=== PATIENT | male | born 1940 | race Caucasian/White ===

== ENCOUNTER → 2017-05-20 | Outpatient (CLI) | payer MEDICARE ==
[2017-05-20 08:52] LABS: ALBUMIN 3.3 g/dL (3.4-5.0); ALBUMIN/GLOBULIN RATIO 0.7 (1.0-1.7); CALCIUM 8.5 mg/dL (8.5-10.1); CREATININE 1.3 mg/dL (0.7-1.3); POTASSIUM 4.4 mmol/L (3.5-5.1); TOTAL BILIRUBIN 0.5 mg/dL (0.2-1.0); TOTAL PROTEIN 7.9 g/dL (6.4-8.2)
== END | disposition home or self-care (01) ==
LOC: LAB 03-08 08:34
PROVIDERS: ATTEND Nurse Practitioner
DX: E78.5 Hyperlipidemia, unspecified (principal); J84.112 Idiopathic pulmonary fibrosis; Z79.899 Other long term (current) drug therapy
CPT/HCPCS: 36415; 80053; 80061

== ENCOUNTER → 2017-06-28 | Outpatient (CLI) | payer MEDICARE ==
[2017-06-29 09:30] LABS: ALBUMIN 3.6 g/dL (3.4-5.0); ALBUMIN/GLOBULIN RATIO 0.8 (1.0-1.7); CALCIUM 8.8 mg/dL (8.5-10.1); CREATININE 1.2 mg/dL (0.7-1.3); GFR 59.2; POTASSIUM 4.3 mmol/L (3.5-5.1); TOTAL BILIRUBIN 0.5 mg/dL (0.2-1.0); TOTAL PROTEIN 8.1 g/dL (6.4-8.2)
[2017-06-29 09:31] LABS: MAGNESIUM 1.9 mg/dL (1.8-2.4)
== END | disposition home or self-care (01) ==
LOC: LAB 08:13
PROVIDERS: ATTEND Nurse Practitioner
DX: E78.5 Hyperlipidemia, unspecified (principal); R52 Pain, unspecified
CPT/HCPCS: 36415; 80053; 80061; 82306; 83735

== ENCOUNTER → 2018-04-06 | Outpatient (CLI) | payer MEDICARE ==
[2018-04-06 09:21] LABS: ALBUMIN 3.4 g/dL (3.4-5.0); ALBUMIN/GLOBULIN RATIO 0.9 (1.0-1.7); CALCIUM 9.1 mg/dL (8.5-10.1); CREATININE 1.3 mg/dL (0.7-1.3); GFR 53.8; POTASSIUM 3.8 mmol/L (3.5-5.1); TOTAL BILIRUBIN 0.8 mg/dL (0.2-1.0); TOTAL PROTEIN 7.3 g/dL (6.4-8.2)
== END | disposition home or self-care (01) ==
LOC: LAB 08:12
PROVIDERS: ATTEND Nurse Practitioner
DX: E78.5 Hyperlipidemia, unspecified (principal)
CPT/HCPCS: 36415; 80053; 80061

== ENCOUNTER → 2018-07-20 | Outpatient (CLI) | payer MEDICARE ==
[2018-07-20 09:24] LABS: CALCIUM 8.6 mg/dL (8.5-10.1); CREATININE 1.4 mg/dL (0.7-1.3); GFR 49.4; POTASSIUM 3.9 mmol/L (3.5-5.1)
== END | disposition home or self-care (01) ==
LOC: LAB 08:49
PROVIDERS: ATTEND Nurse Practitioner
DX: R60.0 Localized edema (principal)
CPT/HCPCS: 36415; 80048

== ENCOUNTER → 2018-08-01 | Outpatient (CLI) | payer MEDICARE ==
[2018-08-01 14:50] LABS: CALCIUM 8.6 mg/dL (8.5-10.1); CREATININE 1.4 mg/dL (0.7-1.3); GFR 49.4
[2018-08-01 14:51] LABS: POTASSIUM 3.8 mmol/L (3.5-5.1)
[2018-08-02 13:21] LABS: FREE T4 1.05 ng/dL (0.76-1.46); THYROID STIM HORMONE (TSH) 3.29 uIU/mL (0.358-3.740)
== END | disposition home or self-care (01) ==
LOC: LAB 11:55
PROVIDERS: ATTEND Nurse Practitioner
DX: I50.810 Right heart failure, unspecified (principal)
CPT/HCPCS: 36415; 80048; 83880; 84439; 84443

== ENCOUNTER → 2018-09-29 | Outpatient (CLI) | payer MEDICARE ==
[2018-09-29 12:04] LABS: CALCIUM 8.5 mg/dL (8.5-10.1); CREATININE 1.4 mg/dL (0.7-1.3); GFR 49.4; POTASSIUM 3.1 mmol/L (3.5-5.1)
== END | disposition home or self-care (01) ==
LOC: LAB 11:18
PROVIDERS: ATTEND Nurse Practitioner
DX: I27.21 Secondary pulmonary arterial hypertension (principal)
CPT/HCPCS: 36415; 80048

== ENCOUNTER 2018-10-19 14:46 | Emergency (ER) | payer MEDICARE ==
[~2018-10-19] VITALS: Ht 182.9 cm; Wt 83.5 kg
[2018-10-19] MEDS ORDERED: IPRATRPIUM/ALBUTEROL 0.5/2.5MG 3 ML NEBU. ONE (14:47)
[2018-10-19] MEDS ORDERED: NALOXONE 0.4 MG/ML VIAL. ONE (14:52)
[2018-10-19] MEDS ORDERED: NALOXONE 0.4 MG/ML VIAL. IV ONE (15:00)
[2018-10-19] MEDS ORDERED: IPRATRPIUM/ALBUTEROL 0.5/2.5MG 3 ML NEBU. NEB ONE (15:00)
[2018-10-19 15:06] LABS: BASO # 0.1 x10^3/uL (0.0-0.2); BASO % 1 % (0-3); EOS # 0.2 x10^3/uL (0.0-0.7); EOS % 1 % (0-3); HEMATOCRIT 51.9 % (39.0-53.0); HEMOGLOBIN 16.5 g/dL (13.0-17.5); LYMPH # 2.5 x10^3/uL (1.0-4.8); LYMPH % 20 % (24-48); MEAN CORPUSCULAR HEMOGLOBIN 32 pg (25-35); MEAN CORPUSCULAR HGB CONC 32 g/dL (31-37); MEAN CORPUSCULAR VOLUME 102 fL (79-100); MONO # 1.2 x10^3/uL (0.0-1.1); MONO % 10 % (0-9); NEUT # 8.5 x10^3uL (1.8-7.7); NEUT % 68 % (31-73); PLATELET COUNT 124 x10^3/uL (140-400); RED BLOOD COUNT 5.11 x10^6/uL (4.30-5.70); RED CELL DISTRIBUTION WIDTH 15.9 % (11.5-14.5); WHITE BLOOD COUNT 12.5 x10^3/uL (4.0-11.0)
--- NOTE | 2018-10-19 15:09 | RAD ---
PORTABLE CHEST 1V History: Altered mental status today, hypoxia Comparison: None. Findings: AP view of the chest is submitted. There is perihilar opacity bilaterally, also interstitial opacity of the mid to inferior hemithoraces and to lesser degree of the upper lobes. There is no dependent pleural fluid or pneumothorax. Pericardial cardiac silhouette is somewhat enlarged. Impression: 1. There is interstitial opacity bilaterally likely component of interstitial fibrotic change although superimposed component of interstitial edema or infiltrate not excluded. Electronically signed by: Marlon Ledesma MD (10/19/2018 3:04 PM) [id number]
[2018-10-19 15:18] LABS: BGAS PH 7.25 (7.35-7.46)
--- NOTE | 2018-10-19 15:19 | RAD ---
CT of the head without contrast, 10/19/2018: HISTORY: Altered mental status There is moderate cerebral atrophy. The ventricles are mildly enlarged on a compensatory basis. There is no shift of the midline structures. 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 There is no evidence of acute intracranial hemorrhage or mass effect. IMPRESSION: 1. Chronic findings as described above. 2. No acute intracranial abnormality is detected. PQRS Compliance Statement: One or more of the following individualized dose reduction techniques were utilized for this examination: 1. Automated exposure control 2. Adjustment of the mA and/or kV according to patient size 3. Use of iterative reconstruction technique Electronically signed by: Suresh Ott MD (10/19/2018 3:15 PM) [facility]
[2018-10-19 15:33] LABS: ALBUMIN 3.2 g/dL (3.4-5.0); ALBUMIN/GLOBULIN RATIO 0.9 (1.0-1.7); CALCIUM 8.3 mg/dL (8.5-10.1); CREATININE 1.7 mg/dL (0.7-1.3); GFR 39.5; POTASSIUM 4.5 mmol/L (3.5-5.1); TOTAL BILIRUBIN 0.7 mg/dL (0.2-1.0); TOTAL PROTEIN 6.9 g/dL (6.4-8.2)
[2018-10-19 15:34] LABS: BILIRUBIN,URINE NEG (NEG); CLARITY,URINE HAZY; COLOR,URINE STRAW; GLUCOSE,URINE NEG (NEG); NITRITE,URINE NEG (NEG); UROBILINOGEN,URINE 0.2 mg/dL (0.2 mg/dL)
[2018-10-19 15:35] LABS: BACTERIA,URINE FEW /HPF (0-FEW); HYALINE CASTS, URINE OCC /HPF; SPERM,URINE PRESENT /HPF
--- NOTE | 2018-10-19 15:36 | PHYS DOC ---
Past History Additional Past Medical Histor: pulmonary disease Adult General Chief Complaint Chief Complaint: SHORTNESS OF BREATH HPI HPI Patient is a 77 year old male who presents with shortness of breath and altered mental status. Patient was found by a family approximately 5 minutes prior to EMS arrival with the patient having difficulty breathing and a decreased mental status. EMS arrived found that he was hypoxic and started bag valve respirations. Fingerstick sugar was greater than 100 for EMS. Patient took some unknown medicines that may or may not have been set out by his nurse. Patient is post be receiving palliative care for this chronic lung disease. History is limited from patient due to his altered mental status. History is also limited from family.[] Review of Systems Review of Systems Limited due to altered mental status All other systems were reviewed and found to be within normal limits, except as documented in this note. Current Medications Current Medications Current Medications Medications (Trade) Dose Ordered Sig/Billie Start Time Stop Time Status Last Admin Dose Admin Albuterol/ Ipratropium (Duoneb) 3 ml STK-MED ONCE 10/19/18 14:47 10/19/18 14:49 DC Naloxone HCl (Narcan) 0.4 mg STK-MED ONCE 10/19/18 14:52 10/19/18 14:54 DC Physical Exam Physical Exam Constitutional: Well developed, well nourished, minimally responsive, tolerating nasal airway. [] HENT: Normocephalic, atraumatic, bilateral external ears normal, oropharynx moist, no oral exudates, nose normal. [] Eyes: PERRLA, EOMI, conjunctiva normal, no discharge. [] Neck: Normal range of motion, no tenderness, supple, no stridor. [] Cardiovascular:Heart rate is tachycardiac with regular rhythm, no murmur [] Lungs & Thorax: Bilateral breath sounds coarse to auscultation[] Abdomen: Bowel sounds normal, soft, no tenderness, no masses, no pulsatile masses. [] Skin: Warm, dry, no erythema, no rash. [] Back: No tenderness, no CVA tenderness. [] Extremities: No tenderness, no cyanosis, no clubbing, ROM intact, 2-3+ pretibial edema. [] Neurologic: Decreased mental status, normal motor function, normal sensory function, no focal deficits noted. [] Psychologic: Unable to assess. [] Current Patient Data Vital Signs Vital Signs Date Time Temp Pulse Resp B/P (MAP) Pulse Ox O2 Delivery O2 Flow Rate FiO2 10/19/18 15:23 88 18 116/91 (99) 90 NonRebreather Mask 15.0 Lab Results Laboratory Tests Test 10/19/18 14:50 White Blood Count 12.5 x10^3/uL (4.0-11.0) H Red Blood Count 5.11 x10^6/uL (4.30-5.70) Hemoglobin 16.5 g/dL (13.0-17.5) Hematocrit 51.9 % (39.0-53.0) Mean Corpuscular Volume 102 fL (79-100) H Mean Corpuscular Hemoglobin 32 pg (25-35) Mean Corpuscular Hemoglobin Concent 32 g/dL (31-37) Red Cell Distribution Width 15.9 % (11.5-14.5) H Platelet Count 124 x10^3/uL (140-400) L Neutrophils (%) (Auto) 68 % (31-73) Lymphocytes (%) (Auto) 20 % (24-48) L Monocytes (%) (Auto) 10 % (0-9) H Eosinophils (%) (Auto) 1 % (0-3) Basophils (%) (Auto) 1 % (0-3) Neutrophils # (Auto) 8.5 x10^3uL (1.8-7.7) H Lymphocytes # (Auto) 2.5 x10^3/uL (1.0-4.8) Monocytes # (Auto) 1.2 x10^3/uL (0.0-1.1) H Eosinophils # (Auto) 0.2 x10^3/uL (0.0-0.7) Basophils # (Auto) 0.1 x10^3/uL (0.0-0.2) Prothrombin Time 16.7 SEC (9.4-11.4) H Prothrombin Time INR 1.7 (0.9-1.1) H Blood pH 7.25 (7.35-7.46) L Blood Gas PCO2 35 mmHg (35-46) Blood Gas PO2 74 mmHg (71-100) Blood Gas HCO3 15 mmol/L (21-28) L Arterial Bld O2 Saturation (Calc) 93 % (92-99) FiO2 100 % Ammonia 31 mcmol/L (11-34) Troponin I Quantitative 0.035 ng/mL (0-0.055) EKG EKG [] Radiology/Procedures Radiology/Procedures CT of the head without contrast, 10/19/2018: HISTORY: Altered mental status There is moderate cerebral atrophy. The ventricles are mildly enlarged on a compensatory basis. There is no shift of the midline structures. 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 There is no evidence of acute intracranial hemorrhage or mass effect. IMPRESSION: 1. Chronic findings as described above. 2. No acute intracranial abnormality is detected. PORTABLE CHEST 1V History: Altered mental status today, hypoxia Comparison: None. Findings: AP view of the chest is submitted. There is perihilar opacity bilaterally, also interstitial opacity of the mid to inferior hemithoraces and to lesser degree of the upper lobes. There is no dependent pleural fluid or pneumothorax. Pericardial cardiac silhouette is somewhat enlarged. Impression: 1. There is interstitial opacity bilaterally likely component of interstitial fibrotic change although superimposed component of interstitial edema or infiltrate not excluded.[] Course & Med Decision Making Course & Med Decision Making Pertinent Labs and Imaging studies reviewed. (See chart for details) ED course and medical decision making: Patient arrived, was placed in bed, tolerated exam well. Patient was receiving BVM respirations from EMS he was given a breathing treatment, and placed on nonrebreather oxygen improved his saturation. He was additionally given Narcan due to his decreased mental status. His blood sugar was noted to be 149 so no additional dextrose was deemed to be necessary. Patient was transported to and from [place] with any complications. His mental status improved during his emergency department stay. Consultation was made with his primary care physician, since patient needed specialty such as pulmonary as well as cardiology which were not available at [facility] it was elected to transfer him to where his pulmonary team and other specialties necessary for his optimal care would be present. Dr. Jay was the accepting physician at . Patient was given IV antibiotics as well as diuretics for the mixed picture of this CHF along with the urinary tract infection the combination of which may have been what pushed him over with the altered mental status. There is no evidence of an acute infiltrate on chest x- ray, no evidence of a mass or bleed on CT scan, and his mental status improved with improved oxygenation so do not see any evidence of a specific stroke syndrome. Critical care time 45 minutes due to discussion with consultants, discussion with family, interpretation of labs and imaging studies, and direct patient care [] Dragon Disclaimer Dragon Disclaimer This electronic medical record was generated, in whole or in part, using a voice recognition dictation system. Departure Departure: Impression: Primary Impression: Hypoxia Additional Impressions: Lactic acidosis Sepsis due to urinary tract infection Disposition: 05 XFER OTHER Condition: CRITICAL Referrals: PCP,UNKNOWN (PCP) Problem Qualifiers QUINCY BUTLER DO Oct 19, 2018 15:36
[2018-10-19] MEDS ORDERED: FUROSEMIDE 40 MG/4 ML VIAL IVP ONE (16:00)
[2018-10-19] MEDS ORDERED: PIPERACILLIN/TAZOBACTAM 4.5 GM in IV NORMAL SALINE 50ML 50 ML IV ONE (16:15)
[2018-10-19] MEDS ORDERED: PIPERACILLIN/TAZOBACTAM 4.5 GM VIAL IV ONE (16:23)
[2018-10-19] MEDS ORDERED: IV NORMAL SALINE 50ML 50 ML ONE (16:23)
[2018-10-19] MEDS ORDERED: LORazepam 2 MG/ML VIAL ONE (16:39)
[2018-10-19] MEDS ORDERED: LORazepam 2 MG/ML VIAL IV ONE (16:45)
[2018-10-19 17:27] VITALS: BP 98/64
== END 2018-10-19 18:15 | disposition short-term general hospital (02) ==
LOC: ER 14:46 → MERGE 14:46 → ER 18:15
DX: A41.9 Sepsis, unspecified organism (principal); N39.0 Urinary tract infection, site not specified; E87.2 Acidosis; R09.02 Hypoxemia
CPT/HCPCS: 36415; 36600; 51702; 70450; 71045; 80053; 81001; 82140; 82803; 82947; 83605; 83735; 83880; 84484; 85025; 85610; 87040; 87086; 94640; 94660; 96365; 96368; 96375; 99291; J1940; J1956; J2060; J2310; J2543; J7620